=== PATIENT | male | born 1990 | race Hispanic/Latino ===

== ENCOUNTER 2019-06-16 20:34 | Emergency (ER) | payer MEDICAID, SELFPAY ==
--- NOTE | 2019-06-16 21:38 | RAD ---
3 views left hand: 06/16/2019 COMPARISON: None HISTORY: Hand injury FINDINGS: Mildly comminuted fractures are noted involving the distal aspect of the third and fourth d istal phalanges. No intra-articular extension or evidence of dislocation. No significant displacement of these fractures noted. IMPRESSION: Mildly comminuted nondisplaced fractures involving the tip of the third and fourth distal phalanges.
== END 2019-06-16 22:12 | disposition home or self-care (01) ==
LOC: MADERS 20:34
DX: S62.603A Fracture of unspecified phalanx of left middle finger, initial encounter for closed fracture (principal); S62.605A Fracture of unspecified phalanx of left ring finger, initial encounter for closed fracture; X58.XXXA Exposure to other specified factors, initial encounter
CPT/HCPCS: 26750